=== PATIENT | male | born 1990 | race African-American/Black ===

== ENCOUNTER 2019-06-28 14:57 | Emergency (ER) | payer OTHER ==
[~2019-06-28] VITALS: Ht 175.3 cm; Wt 108.9 kg
[2019-06-28] MEDS ORDERED: BACTRIM DS TAB1 EACH PO (15:50)
[2019-06-28 16:36] LABS: URINE BILIRUBIN NEGATIVE (Negative); URINE BLOOD 2+ (Negative); URINE CLARITY CLEAR; URINE COLOR YELLOW; URINE GLUCOSE-RANDOM* NEGATIVE (Negative); URINE KETONES NEGATIVE (Negative); URINE NITRITE-REFLEX NEGATIVE (Negative); URINE PROTEIN (DIPSTICK) NEGATIVE (Negative); URINE SPECIFIC GRAVITY >= 1.030 (1.005-1.035); URINE UROBILINOGEN 0.2 E.U./dl (0.2-1.0)
[2019-06-28 16:37] LABS: URINE LEUKOCYTES-REFLEX 2+ (Negative)
[2019-06-28 16:44] LABS: BACTERIA-REFLEX 1-9 Few /HPF (None Seen); CASTS None Seen /LPF (None Seen); CRYSTALS None Seen /LPF (None Seen); SQUAMOUS None Seen /LPF (0-3); URINE RBC 0-2 Rare /HPF (0-2); URINE WBC-REFLEX >25 Many /HPF (0-5)
[2019-06-28 17:35] VITALS: BP 132/98
--- NOTE | 2019-06-29 08:46 | NUR ---
PATIENT NOTIFIED OF POSITIVE RESULTS. PT RECEIVED TREATMENT IN THE ED. EDUCATION PROVIDED OVER THE PHONE TO PT. DR. ROSS AWARE AND SIGNED RESULTS PAGE.
== END 2019-06-28 17:26 | disposition short-term general hospital (02) ==
LOC: ER 14:57
PROVIDERS: Emergency Medicine
DX: N34.2 Other urethritis (principal); R31.9 Hematuria, unspecified; F17.200 Nicotine dependence, unspecified, uncomplicated

== ENCOUNTER 2019-06-30 16:01 | Emergency (ER) | payer OTHER ==
[~2019-06-30] VITALS: Ht 175.3 cm; Wt 113.4 kg
[~2019-06-30 16:01] MED LIST: BACTRIM DS TAB1 EACH PO
[2019-06-30 17:38] LABS: URINE BILIRUBIN NEGATIVE (Negative); URINE BLOOD 3+ (Negative); URINE CLARITY CLEAR; URINE COLOR YELLOW; URINE GLUCOSE-RANDOM* NEGATIVE (Negative); URINE KETONES TRACE (Negative); URINE LEUKOCYTES-REFLEX 2+ (Negative); URINE NITRITE-REFLEX NEGATIVE (Negative); URINE PROTEIN (DIPSTICK) TRACE (Negative); URINE SPECIFIC GRAVITY >= 1.030 (1.005-1.035); URINE UROBILINOGEN 0.2 E.U./dl (0.2-1.0)
[2019-06-30 17:55] LABS: BACTERIA-REFLEX None Seen /HPF (None Seen); CASTS None Seen /LPF (None Seen); CRYSTALS None Seen /LPF (None Seen); MUCUS 0-3 Light strn/LPF (None Seen); SQUAMOUS None Seen /LPF (0-3); URINE WBC-REFLEX >25 Many /HPF (0-5); WBC CLUMPS Few (None Seen)
[2019-06-30] MEDS ORDERED: LEVAQUIN 500 M500 M1 PO (19:00)
[2019-06-30] MEDS ORDERED: NORCO 5-325 TA1 EAC1 PO (19:00)
[2019-06-30 19:30] VITALS: BP 132/77
== END 2019-06-30 19:31 | disposition home or self-care (01) ==
LOC: ER 16:01
PROVIDERS: Emergency Medicine
DX: N50.811 Right testicular pain (principal); F17.210 Nicotine dependence, cigarettes, uncomplicated